=== PATIENT | male | born 1975 | race Caucasian/White ===

== ENCOUNTER → 2017-08-06 07:12 | Outpatient (CLI) | payer OTHER, SELFPAY ==
[2017-08-06 07:44] LABS: Absolute Lymphocyte Count 1.87 X10^3/ul (0.83-4.51); Absolute Neutrophil Count 5.4 X10^3/uL (2.0-7.7); Basophil# 0.11 X10^3/uL; Basophil% 1.3 % (0-1); Eosinophils% 3.4 % (0-5); Hematocrit 41.3 % (40-54); Hemoglobin 13.6 g/dl (13.0-16.5); Lymphocyte # 1.87 X10^3/ul (4.0); Lymphocyte % 21.3 % (19-41); Mean Corp Hgb Conc 32.9 g/gl (32-36); Mean Corpuscular Volume 82.1 fL (80-94); Mean Platelet Vol. 10.3 fl (6.2-12.0); Monocyte# 1.13 X10^3/uL; Monocyte% 12.9 % (0-10); Neutrophil # 5.37 X10^3/uL (2.7-7.7); POSITIVE COUNT NO; POSITIVE DIFFERENTIAL NO; POSITIVE MORPHOLOGY NO; Platelet Count 308 K/mm3 (150-450); RBC Distribution Width CV 14.1 % (11.6-14.6); RBC Distribution Width SD 41.3 fl (35.1-43.9); Red Blood Count 5.03 M/mm3 (4.6-6.2); White Blood Count 8.8 K/mm3 (4.4-11.0)
[2017-08-06 08:21] LABS: ALB/GLOB Ratio 0.9 RATIO (0.9-2.4); AST(SGOT) 18 U/L (15-37); Alanine Aminotransfer ALT/SGPT 33 U/L (16-61); Albumin, Serum 3.5 g/dL (3.2-5.0); Alkaline Phosphatase 77 U/L (45-117); Anion Gap 7 (5-15); BUN 19 mg/dL (7-18); BUN/Creat Ratio 22.3 RATIO (10-20); Calcium,Total 8.1 mg/dL (8.5-10.1); Chloride 108 mmol/L (98-107); Cholesterol 184 mg/dL (200); Creatinine, Serum 0.85 mg/dL (0.70-1.30); EST Glomerular Filtration Rate 106 mL/min (>60); Est Glom Filt Rate - Afr Amer 128 mL/min (>60); Globulin 3.9 g/dL (2.2-4.2); Glucose 100 mg/dL (74-106); High Density Lipoprotein 46 mg/dL; PSA,Total - Annual Screen 0.36 ng/mL (0.00-4.00); Potassium 4.2 mmol/L (3.5-5.1); Protein, Total 7.4 g/dL (6.4-8.2); Sodium Level 141 mmol/L (136-145); Thyroid Stim Hormone (TSH) 1.59 uIU/mL (0.358-3.74); Triglycerides 80 mg/dL; Very Low Density Lipoprotein 16 mg/dL (5-40)
[2017-08-06 12:08] LABS: Vitamin B12 636 pg/mL (211-911)
[2017-08-11 12:07] LABS: Testosterone, Free 8.75 ng/dL (5.00-21.00)
[2017-08-12 11:10] LABS: Testosterone, % Free 3.82 % (1.50-4.20); Testosterone, Total 229 ng/dL (264-916)
== END ==
PROVIDERS: Family Provider Family Medicine; PCP Family Medicine; Visit Provider Family Medicine
DX: Z00.01 Encounter for general adult medical examination with abnormal findings (principal); R53.83 Other fatigue; R63.5 Abnormal weight gain; E53.8 Deficiency of other specified B group vitamins; E66.01 Morbid (severe) obesity due to excess calories
CPT/HCPCS: 36415; 80053; 80061; 82306; 82607; 84153; 84402; 84403; 84443; 85025; G0103

== ENCOUNTER → 2017-09-06 20:34 | Outpatient (CLI) | payer OTHER, SELFPAY | PROVIDERS: Family Provider Family Medicine; PCP Family Medicine; Visit Provider Family Medicine | DX: G47.10 Hypersomnia, unspecified (principal); R06.83 Snoring; R53.83 Other fatigue | CPT/HCPCS: 95810 ==

== ENCOUNTER 2019-03-06 15:37 | Observation (INO) | payer OTHER, SELFPAY ==
[2019-03-06] VITALS (8 sets, daily range): BP systolic 136–197; BP diastolic 85–117; PULSE 80–95; RESP 16–20; TEMP 36.7–37.1; O2SAT 95–98; BMI 45.7; BMI 45.6
--- NOTE | 2019-03-06 16:02 | CT_ITS ---
STUDY: CT BRAIN WITHOUT CONTRAST REASON FOR EXAM: Male, 44 years old. Aphasia and confusion beginning today. RADIATION DOSAGE (If Supplied By Facility): CTDIvol = ( 44.99 ) mGy, DLP = ( 812.98 ) mGycm TECHNIQUE: Transaxial CT imaging of the brain was performed without administration of intravenous contrast material. Individualized dose optimization techniques were used for this CT. COMPARISON: No relevant priors. FINDINGS: Normal soft tissue structures. Normal calvarium. Normal size ventricles and extra-axial spaces for the patient's age. Normal white matter tracts of the cerebral hemispheres. Normal basal ganglia and thalami. Normal brainstem. Normal cerebellum. There is no intracranial hemorrhage. There are no findings of an acute ischemic infarction. Normal visualized paranasal sinuses. CT/Brain/Head without Contrast IMPRESSION: Normal unenhanced CT scan of the brain. There is continued concern for acute infarct, MRI is recommended. Electronically Signed: Alan Beltre DO at 16:57 EDT Tel [phone], Service support ,
--- NOTE | 2019-03-06 16:02 | EKG12_ITS ---
Test Reason : ALT LOC Blood Pressure : / mmHG Vent. Rate : 082 BPM Atrial Rate : 082 BPM P-R Int : 170 ms QRS Dur : 088 ms QT Int : 366 ms P-R-T Axes : 018 000 006 degrees QTc Int : 427 ms Normal sinus rhythm with sinus arrhythmia Normal ECG Confirmed by SHYAM COLEMAN, LIZA ([id number]), editorial assistant EDDIE RASMUSSEN ([id number]) on 03/08/2019 12:49:18 PM Referred By: Benjamin Esquivel Confirmed By:LIZA HOWE MD
--- NOTE | 2019-03-06 16:03 | ED.VISSUMM ---
- ER Visit Summary Date of Service: 03/06/19 Chief Complaint: Expressive aphasia History of Present Illness: The patient is a 44 M presenting with expressive aphasia. Patient was at his counselor's office and he started having difficulty reading and with speech. He states he was looking at his phone and was unable to interpret the words. He then tried to speak and was unable to speak. He states he knew what he wanted to say but was unable to get the words out. The symptoms lasted approximately 40 minutes. He is starting to improve. He states he also had left hand numbness, this has resolved. Denies other complaints. Physical Examination: Vitals are stable. Patient is afebrile. Alert no acute distress. HEENT exam is unremarkable. Neck is supple. Lungs are clear and equal bilaterally. Heart is regular rate and rhythm. Abdomen is soft nontender nondistended. Extremities are unremarkable. Skin is warm and dry. No focal neurologic deficit. NIH 0 Remainder of exam is unremarkable. Emergency Department Course and Treatment: CBC, chemistries unremarkable other than BUN 22. INR 1.0. Troponin is negative. EKG is sinus rate of 82 with no acute ischemic changes. Chest x-ray is normal. CT head shows normal unenhanced CT scan of the brain. NIH remains 0 in the ED. Discussed with the hospitalist for observation. Disposition: Observation Impression: TIA This note was generated with [employer] dictation software. It may contain incorrect words, spelling, and punctuation that were not noted in review of the chart prior to signing ED Disposition - Plan for ED Patient: Referrals: Basil Simental DO [Primary Care Provider] -
--- NOTE | 2019-03-06 16:15 | RAD_ITS ---
STUDY: X-RAY CHEST REASON FOR EXAM: Male, 44 years old. Altered mental status TECHNIQUE: Single AP portable view of the chest. COMPARISON: None. FINDINGS: The lungs are clear and expanded. There is no demonstrated pleural abnormality. Normal size heart. Normal mediastinum and robin. Normal visualized pulmonary arteries. Normal visualized aortic arch and descending thoracic aorta. Normal visualized thoracic spine. Normal visualized ribs, clavicles, and shoulders. There is no demonstrated abnormality of the visualized soft tissue structures of the upper abdomen. RAD/Chest 1 View IMPRESSION: Normal x-ray examination of the chest. Electronically Signed: Gary Ohara MD at 16:29 EDT Tel , Service support ,
[2019-03-06 16:26] LABS: Absolute Neutrophil Count 7.3 X10^3/uL (2.0-7.7); Basophil# 0.08 X10^3/uL; Basophil% 0.7 % (0-1); Eosinophil# 0.19 X10^3/uL; Eosinophils% 1.7 % (0-5); Hematocrit 47.3 % (40-54); Hemoglobin 15.7 g/dL (13.0-16.5); Lymphocyte % 21.7 % (19-41); Mean Corp Hgb Conc 33.2 g/dL (32-36); Mean Corpuscular Hgb 28.8 pg (27.0-32.0); Mean Corpuscular Volume 86.6 fL (80-94); Mean Platelet Vol. 9.7 fl (6.2-12.0); Monocyte# 0.99 X10^3/uL; NRBC Flagged by Analyzer 0 % (0-5); Neutrophil # 7.34 X10^3/uL (2.7-7.7); Neutrophil % 66.5 % (47-70); Platelet Count 274 K/mm3 (150-450); RBC Distribution Width CV 12.8 % (11.6-14.6); Red Blood Count 5.46 M/mm3 (4.6-6.2)
[2019-03-06 16:35] LABS: Prothrombin Time (Protime)PT. 13.2 SECONDS (11.7-14.9)
[2019-03-06 16:43] LABS: Anion Gap 6 (5-15); BUN 22 mg/dL (7-18); Calcium,Total 8.7 mg/dL (8.5-10.1); Chloride 105 mmol/L (98-107); Creatinine, Serum 1.22 mg/dL (0.70-1.30); EST Glomerular Filtration Rate 69 mL/min (>60); Est Glom Filt Rate - Afr Amer 84 mL/min (>60); Estimated Creatinine Clearance 81.44 ml/min; Glucose 106 mg/dL (74-106); Potassium 3.7 mmol/L (3.5-5.1); Sodium Level 139 mmol/L (136-145)
[2019-03-06 17:15] LABS: Bedside Glucose 114 mg/dL (70-110)
--- NOTE | 2019-03-06 17:41 | PCM.HP.STD ---
<Tavo Blackburn - Last Filed: 03/06/19 17:41> Problem List (1) Aphasia Status: Acute (2) Morbid obesity Status: Chronic (3) Multiple sclerosis Status: Chronic History of Present Illness Date of Admission: 03/06/19 Chief Complaint: aphasia The patient is a 44 year old M with pmhx of Multiple sclerosis diagnosed in 2010 for which he receives no treatment, also with hx of morbid obesity, who presents to the ER with c/o aphasia. Today he was going to see his counsellor whom he sees for periodic guidance and specifically not for depression or other issues. He was sitting in the waiting room and he suddenly could not read what was on his phone. He then went to talk to the counsellor and he could not speak. He could not put full sentences together. He could say some words. He also developed numbness in his left hand. This lasted about 30-45 mins and then resolved on its own. He currently has no symptoms. He states that he has never had the reading or speech issue before. He says that when he is stress he develops numbness and tingling in his left hand due to a problem with his brachial plexus. He states he has no medical problems, however later admitted that in 2010 he was diagnosed at [facility] with MS. He presented at that time with full body left sided weakness. He states this was confirmed with an MRI of the brain that showed multiple lesions. A lumbar puncture was reportedly done that did not reveal anything, however he states the hit a nerve and his left leg has not been the same since. He states he has never taken medication for the MS because they only mask the symptoms and dont treat the underlying problem and instead he has treated it with vitamins and natural substances because he believes these treat the underlying problem. His father has a neurologic disorder that he also treats with natural substances. His mother has a hx of stroke. He has a band aid on his head but denies trauma. He told the ER physician that he wears a band aid on his head every day after someone made fun of him for it in the past. He has no visual disturbances, no focal weakness, no hearing changes, no headache, no dysphagia, no ataxia, no slurred speech or facial droop. [] Past Medical History Past Medical History (Chronic Problems): Chronic Problems Morbid obesity (Chronic) Multiple sclerosis (Chronic) Allergies No Known Allergies Allergy (Verified 03/06/19 15:40) Home Medications: Ambulatory Orders Medication Instructions Recorded Terbinafine HCl 250 mg PO DAILY 03/06/19 Psychiatric History: No pertinent psych hx Lives: Spouse/ Significant Other Smoking Status: Never smoker Tobacco Use: Non-smoker Alcohol: None Drugs: None - *Family History Maternal History Items: Stroke Paternal History Items: - - unspecified neurologic disorder Review of Systems Constitutional: Denies: Chills, Fever, Weight Change HEENT: Denies: Head Aches, Sinus Congestion, Sinus Drainage Cardiovascular: Denies: Chest Pain, Palpitations Respiratory: Denies: Cough, Shortness of breath at rest, Sputum production Gastrointestinal: Denies: Abdominal Pain, Nausea, Vomiting Genitourinary: Denies: Dysuria Musculoskeletal: Denies: Joint Pain, Joint Tenderness Skin: Denies: Rash, Wounds Neurological: Reports: Change in Speech, Numbness, Tingling. Denies: Balance problems, Blurred vision, Double vision, Slurred speech, Confusion, Difficulty swallowing, Focal weakness, Headaches, Incoordination Psychiatric: Denies: Anxiety, Depression, Homicidal Ideations, Suicidal Ideations Hematologic/ Lymphatic: Denies: Easy Bruising, Easy Bleeding VTE Information - Inpt Only VTE Present on Admission: No VTE Mechan Device Prophylaxis: None VTE Pharm Prophylaxis ordered?: Yes Patient Problems: Active and Suspected Problems Aphasia (Acute) - Physical Exam General: Alert, Oriented x3, Cooperative HEENT: Atraumatic, PERRLA, EOMI, Normocephalic Neck: Supple, No JVD, Negative Carotid Bruits Lungs: Clear to auscultation, Normal air movement Cardiovascular: Regular rate, No murmurs Abdomen: Bowel Sounds Present, Soft, Non Tender, Obese Extremities: No edema, Capillary Refill Less than 3 Seconds Skin: No rashes, No breakdown Musculoskeletal: No Tenderness to Palpation of Joints or Extremities Neurological: Cranial nerves II-XII grossly intact, - - strength intact bilaterally, no pronator drift, graphasthesia intact, point to point intact, sensation intact througout exam, clinical professor strength excellent, rapid alternating movements intact. Psych/Mental Status: Normal Affect, Appropriate, Alert and oriented to time, place, person, mood and affect Vital Signs Temp Pulse Resp BP Pulse Ox 98.7 F 91 20 H 136/85 H 96 03/06/19 15:37 03/06/19 17:19 03/06/19 17:19 03/06/19 17:17 03/06/19 17:19 Oxygen Delivery Method Room Air Weight: 318 lb 12.615 oz Body Mass Index (BMI) 45.7 Finger Stick Blood Glucose 114 Laboratory Tests Past 24 Hrs 03/06/19 03/06/19 03/06/19 16:15 16:15 16:15 WBC 11.0 RBC 5.46 Hgb 15.7 Hct 47.3 MCV 86.6 MCH 28.8 MCHC 33.2 RDW Std Deviation 40.0 RDW Coeff of Killian 12.8 Plt Count 274 MPV 9.7 Immature Gran % (Auto) 0.400 Neut % (Auto) 66.5 Lymph % (Auto) 21.7 Mcpherson % (Auto) 9.0 Eos % (Auto) 1.7 Baso % (Auto) 0.7 Absolute Neuts (auto) 7.3 Absolute Lymphs (auto) 2.40 Nucleated RBC % 0 PT 13.2 INR 1.0 APTT 28.0 Sodium 139 Potassium 3.7 Chloride 105 Carbon Dioxide 28.0 Anion Gap 6 BUN 22 H Creatinine 1.22 Estim Creat Clear Calc 81.44 Est GFR (MDRD) Af Amer 84 Est GFR (MDRD) Non-Af 69 BUN/Creatinine Ratio 18.0 Glucose 106 Calcium 8.7 Troponin I < 0.015 POC Glucose 03/06/19 17:09 POC Glucose 114 H Assessment/Plan All Active Problems Aphasia (Acute) 1. Aphasia, inability to read, left hand parasthesias - concerning for TIA vs Stroke. Also the patient states he was formally diagnosed with MS in 2010. He is not treated for this. Another confounding issue is that he states when he is stressed he has left hand parasthesias from an unspecified brachial plexus problem. He states he had an MRI with multiple lesions but nothing on the LP. CT brain is negative here. He currently has no symptoms. He has never had the speaking or reading problem in the past. He denies hx of HTN, HLD, DMt2, or smoking. He takes no medications except supplements. He has a + fm hx, with a dad with an unspecified neurologic problem and a mother who had a stroke. -Neuro consult -MRI brain -if MRI + for stroke, will obtain echo, CTA head and neck. -BP elevated, permissive until MRI obtained. -NIHSS -FLP -TSH -B12 2. MS - neuro consult - not on medications. Obtain records from [facility]. 3. Morbid obesity - dietary consult DVT ppx: early ambulation This patient was seen by Tavo Blackburn PA-C under the supervision of Dr. Esquivel. <AlvinBenjamin E - Last Filed: 03/06/19 18:37> History of Present Illness The patient is a 44 year old M [] Past Medical History Allergies No Known Allergies Allergy (Verified 03/06/19 15:40) - Physical Exam Vital Signs Temp Pulse Resp BP Pulse Ox 98.3 F 82 16 197/113 H 96 03/06/19 18:14 03/06/19 18:14 03/06/19 18:14 03/06/19 18:18 03/06/19 18:14 Oxygen Delivery Method Room Air Weight: 318 lb 3 oz Body Mass Index (BMI) 45.6 Finger Stick Blood Glucose 114 Intake and Output for Last 24 Hours 03/04/19 03/05/19 03/06/19 23:59 23:59 23:59 Intake Total 0 / 0 Balance 0 / 0 Laboratory Tests Past 24 Hrs 03/06/19 03/06/19 03/06/19 16:15 16:15 16:15 WBC 11.0 RBC 5.46 Hgb 15.7 Hct 47.3 MCV 86.6 MCH 28.8 MCHC 33.2 RDW Std Deviation 40.0 RDW Coeff of Killian 12.8 Plt Count 274 MPV 9.7 Immature Gran % (Auto) 0.400 Neut % (Auto) 66.5 Lymph % (Auto) 21.7 Mcpherson % (Auto) 9.0 Eos % (Auto) 1.7 Baso % (Auto) 0.7 Absolute Neuts (auto) 7.3 Absolute Lymphs (auto) 2.40 Nucleated RBC % 0 PT 13.2 INR 1.0 APTT 28.0 Sodium 139 Potassium 3.7 Chloride 105 Carbon Dioxide 28.0 Anion Gap 6 BUN 22 H Creatinine 1.22 Estim Creat Clear Calc 81.44 Est GFR (MDRD) Af Amer 84 Est GFR (MDRD) Non-Af 69 BUN/Creatinine Ratio 18.0 Glucose 106 Calcium 8.7 Troponin I < 0.015 Triglycerides Cholesterol LDL Cholesterol VLDL Cholesterol HDL Cholesterol 03/06/19 16:15 WBC RBC Hgb Hct MCV MCH MCHC RDW Std Deviation RDW Coeff of Killian Plt Count MPV Immature Gran % (Auto) Neut % (Auto) Lymph % (Auto) Mcpherson % (Auto) Eos % (Auto) Baso % (Auto) Absolute Neuts (auto) Absolute Lymphs (auto) Nucleated RBC % PT INR APTT Sodium Potassium Chloride Carbon Dioxide Anion Gap BUN Creatinine Estim Creat Clear Calc Est GFR (MDRD) Af Amer Est GFR (MDRD) Non-Af BUN/Creatinine Ratio Glucose Calcium Troponin I Triglycerides Pending Cholesterol Pending LDL Cholesterol Pending VLDL Cholesterol Pending HDL Cholesterol Pending POC Glucose 03/06/19 17:09 POC Glucose 114 H Assessment/Plan Hospitalist note: I am seeing this patient in conjunction with Tavo Blackburn. I independently seen and examined the patient. History and physical, laboratory data and imaging studies reviewed and I concur with the above admission and work-up plan. Patient presented to the emergency because of aphasia, difficulty breathing and left hand paresthesia. Today, he went to see his counselor and while he was sitting and suddenly, he could not treat when he was on his phone and then he went to talk to his counselor but he could not speak and he could not afford sentence together. He was able to say some scattered warts during that time. Patient mentioned that this episode lasted for about 30 to 45 minutes and he had left hand numbness as well. He denied focal arm or leg weakness. He denied blurred vision. He denied chest pain or shortness of breath. He mentioned that he was diagnosed with multiple sclerosis back in 2010 at [facility] but he never received treatment for it. During all these years, he has no issues with emesis and never been treated or admitted for. In the emergency department, his NIH stroke scale was 0. His blood pressure was slightly elevated, other vital signs were stable. His routine blood work was unremarkable. CT scan brain showed no acute findings. Chest x-ray showed no acute findings. EKG revealed normal sinus rhythm without evidence of acute ischemic changes or cardiac arrhythmias. He is being admitted for aphasia/left hand paresthesia with concern for suspected TIA or symptoms related to previously diagnosed multiple sclerosis. - Physical Exam General: Alert, Oriented x3, Cooperative, No apparent distress. HEENT: Atraumatic, PERRLA, EOMI. Neck: Supple, No JVD, Negative Carotid Bruits, Trachea Midline, Thyroid Normal. Lungs: Clear to auscultation, Normal air movement, No rhonchi, No wheeze, No rales. Cardiovascular: Regular rate, Regular Rhythm, Normal S1, Normal S2, PMI Normal. Abdomen: Bowel Sounds Present, Soft, Non Tender, Non-Distended, No Hepato-splenomegaly. Extremities: No clubbing, No cyanosis, No edema Skin: No rashes, No breakdown Neurological: Cranial nerves are intact, normal power and tone of all limbs. Assessment and plan: #1 aphasia/left hand paresthesia/difficulty reading: With past history of MS diagnosed in 2010. Symptoms could be due to TIA but unlikely at this time given his age and he has no past history of hypertension, diabetes, CAD or family history of stroke. Plan: Admit to PCU, cardiac monitoring, NIH stroke scale, will profile, start baby aspirin, MRI brain, neurology consult. At this time, I do not think that we need for stroke work-up unless the MRI brain came back positive for acute stroke. #2 elevated blood pressure: Without history of hypertension. Plan: We will allow permissive hypertension for now, will use IV hydralazine PRN for systolic more than 170. Other chronic medical problems: Stable, plan as above. This note was generated with [employer] dictation software. It may contain incorrect words, spelling, and punctuation that were not noted in checking the note before signing. Code Visit OBSV E&M: 53428 Initial observation care L3
--- NOTE | 2019-03-06 18:12 | MRI_ITS ---
HISTORY: Aphasia. 30 minute episode today. TECHNIQUE: Routine brain MR protocol was performed without gadolinium. COMPARISON: CT scan of brain from just over 2 hours earlier FINDINGS: # of images incl. paperwork: 302 Periventricular deep and subcortical white matter disease is mild with a few lesions. There is lesions bilaterally within the occipital lobes adjacent to the occipital horns of the lateral ventricles. There is another lesion within the left frontal lobe oriented perpendicularly away from the lateral ventricles measuring 12 mm. Additional small focus extending away from the anterior horn of the right lateral ventricle in the right frontal lobe is present. Some additional disease extends more inferiorly towards the posterior limb of the right internal capsule. Brain volume is normal. No acute stroke is present. Paranasal sinuses are clear. There are no masses, herniations, nor deviations. Orbits and globes are no acute ischemia perceived. Several white matter lesions within the brain. The pituitary and sella turcica are not enlarged. Flow is present within major central intracranial arteries. MRI/Brain without Contrast IMPRESSION: The largest of these within the left frontal lobe periventricular white matter measuring 12 mm. These are nonspecific, but could be indicative of demyelinating plaques from multiple sclerosis.. at 0417 Reported and signed by: Tha Garber MD Electronically Signed: Tha Garber MD at 4:16 EDT Tel , Service support ,
[2019-03-06 18:42] LABS: Cholesterol 200 mg/dL (200); High Density Lipoprotein 55 mg/dL; Triglycerides 174 mg/dL; Very Low Density Lipoprotein 35 mg/dL (5-40)
[2019-03-07 02:14] VITALS: BP 158/89; PULSE 70; RESP 18; TEMP 36.5; O2SAT 99
[2019-03-07 02:55] VITALS: PULSE 55
[2019-03-07 05:45] VITALS: BP 135/83; PULSE 68; RESP 16; TEMP 36.5; O2SAT 98
[2019-03-07 06:54] VITALS: PULSE 54
[2019-03-07 09:00] VITALS: BP 159/80; PULSE 67; RESP 14; TEMP 36.4; O2SAT 95
[2019-03-07 09:19] LABS: Vitamin B12 850 pg/mL (211-911)
--- NOTE | 2019-03-07 09:27 | MRI_ITS ---
STUDY: MRI BRAIN WITH CONTRAST REASON FOR EXAM: Male, 44 years old. CVA. Suspicious for MS plaques. TECHNIQUE: Postcontrast T1 weighted sagittal, axial and coronal views of the brain only were performed. 28 IV Dotarem was administered for the contrast portion of the examination. COMPARISON: MRI brain without contrast 03/06/2019. FINDINGS: There are no enhancing lesions extra-axially and intraaxially. No communicating or noncommunicating hydrocephalus. There are no new findings. Normal visualized upper cervical spine. MRI/Brain WITH Contrast IMPRESSION: 1. No abnormal enhancing lesions intraaxially and extra-axially. 2. No enhancing MS plaques. Electronically Signed: Jeison Riddle MD at 13:35 EDT , Service support ,
--- NOTE | 2019-03-07 09:27 | CT_ITS ---
STUDY: CTA HEAD AND NECK WITH CONTRAST REASON FOR EXAM: Male, 44 years old. Left-sided weakness. Aphasia and confusion. RADIATION DOSAGE (If Supplied By Facility): CTDIvol = ( 30.81 ) mGy, DLP = ( 1721.01 ) mGycm TECHNIQUE: CT angiography was performed with a multi-detector CT scanner. Data acquisition was obtained from the skull base through the vertex following intravenous administration of 100mL IV Isovue 370. MIP images were reconstructed from the axial data set. Post-processing of the angiographic images was performed, with multiplanar reformation and 3D reconstruction. Individualized dose optimization techniques were used for this CT. COMPARISON: No relevant priors. FINDINGS: Normal bilateral petrous carotid arteries. There is calcified plaque formation of the right cavernous carotid artery, without a cross-sectional luminal stenosis. There is calcified plaque formation of the left cavernous carotid artery, without a cross-sectional luminal stenosis. Normal right A1 segments of the anterior cerebral artery. Normal left A1 segments of the anterior cerebral artery. Normal intact anterior communicating artery (ACOM). Normal bilateral A2 segments of the anterior cerebral arteries. Normal right M1 and M2 segments of the middle cerebral arteries, with a normal M1 bifurcation. Normal left M1 and M2 segments of the middle cerebral arteries, with a normal M1 bifurcation. Normal right posterior communicating artery (PCOM). Normal left posterior communicating artery (PCOM). Normal bilateral vertebral arteries. Normal basilar artery with a normal basilar bifurcation. The visualized bilateral superior cerebellar (SCA) arteries are normal. Normal bilateral P1, P2 and visualized P3 segments of the posterior cerebral arteries. There is no demonstrated aneurysm of the poarch of Lo. There is no demonstrated abnormality of the visualized brain. AORTIC ARCH: Normal visualized aortic arch. Normal origins of the brachiocephalic, left common carotid, and left subclavian arteries. RIGHT CAROTID ARTERIES: Normal right common carotid artery (CCA). Normal right common carotid bulb. Normal origin of the right internal carotid (ICA) artery without a hemodynamically significant stenosis. Normal visualized cervical portion of the right internal carotid artery. Normal origin of the right external carotid artery (ECA). LEFT CAROTID ARTERIES: Normal left common carotid artery (CCA). Normal left common carotid bulb. Normal origin of the left internal carotid (ICA) artery without a hemodynamically significant stenosis. Normal visualized cervical portion of the left internal carotid artery. Normal origin of the left external carotid artery (ECA). VERTEBRAL ARTERIES: There is enhancement within the bilateral vertebral arteries with a small left vertebral artery, and a dominant right vertebral artery. CT/CTA Head AND Neck W/ Contrast IMPRESSION: Normal CTA Head and neck with contrast. Electronically Signed: Juaquin Koenig, at 15:52 EDT , Service support ,
--- NOTE | 2019-03-07 09:33 | ECHOCS_ITS ---
Reason For Study: TIA/CVA Procedure This was a 2D Doppler, Color Flow transthoracic echocardiogram. The study was technically difficult. Contrast injection was performed. Exam performed portable in patient room. Left Ventricle Normal size and thickness. The estimated ejection fraction is 65 %. Normal diastology for age. No regional wall motion abnormalities noted. Right Ventricle Normal size and thickness. Normal systolic function. Atria Normal left atrium. Normal right atrium. Normal atrial septum. Bubble contrast study negative for right to left interatrial shunt. Mitral Valve The mitral valve is structurally normal. No prolapse or stenosis seen. Tricuspid Valve Normal tricuspid valve. Trivial tricuspid valve insufficiency. Right ventricular systolic pressure estimated to be 32 mmHg. Aortic Valve Normal aortic valve. Trisinus/trileaflet aortic valve. Pulmonic Valve Normal pulmonic valve. Great Vessels Normal aortic root. Normal arch. Normal inferior vena cava. Inferior vena cava collapse with sniff. Pericardium/Pleural No pericardial effusion. Medication Diluted definity 3ml given slow IV push to enhance endocardial definition. Performed a rapid injection of agitated mix of 9 cc saline and 1cc air to assess for atrial septal defect. MMode/2D Measurements & Calculations LVIDd: 4.8 cm IVSd: 1.1 cm LA dimension: 4.2 cm LVIDs: 2.8 cm LVPWd: 1.2 cm FS: 41.7 % LAV(MOD-bp): 62.8 ml LA A4 area: 19.5 cm2 RA A4 area: 14.1 cm2 LAV(MOD-bp) Indexed: 24.7 ml/m2 LAV(MOD-sp2): 68.4 ml LAV(MOD-sp4): 55.1 ml Time Measurements MV dec time: 0.28 sec Doppler Measurements & Calculations MV E max zan: 81.8 cm/sec Lat Peak E' Zan: 10.6 cm/sec Med Peak E' Zan: 8.4 cm/sec MV A max zan: 76.1 cm/sec E/E' lat: 7.7 E/E' med: 9.7 MV E/A: 1.1 MV V2 max: 91.5 cm/sec MV P1/2t max zan: 90.5 cm/sec Ao V2 max: 131.9 cm/sec MV max P.3 mmHg MV P1/2t: 104.0 msec Ao max P.0 mmHg MV V2 mean: 52.9 cm/sec MV dec slope: 254.9 cm/sec2 Ao V2 mean: 93.1 cm/sec MV mean P.3 mmHg Ao mean P.8 mmHg MV V2 VTI: 32.3 cm MVA(P1/2t): 2.1 cm2 Ao V2 VTI: 29.4 cm LV V1 max: 110.5 cm/sec PA V2 max: 110.7 cm/sec TR max zan: 257.6 cm/sec LV V1 max P.9 mmHg TR max P.5 mmHg LV V1 mean P.7 mmHg LV V1 mean: 77.3 cm/sec LV V1 VTI: 25.5 cm Interpretation Summary The estimated ejection fraction is 65 %. Normal diastology for age. Bubble contrast study negative for right to left interatrial shunt. Trivial tricuspid valve insufficiency. Right ventricular systolic pressure estimated to be 32 mmHg. The study was technically difficult. Contrast injection was performed. There is no comparison study available. Ordering Physician: Tavo Blackburn Referring Physician: Basil Simental Performed By: Chidi Oconnell RCS
--- NOTE | 2019-03-07 10:49 | PCM.CONS.GEN ---
Problem List (1) Speech disturbance Status: Acute Reason for Consult Date of Consultation: 03/07/19 Reason for Consultation: Speech disturbances, probable TIA History of Present Illness: The patient is a 44 year old M with PMH MS admitted with speech disturbances. Per patient yesterday 03/06/2019 in the morning patient had a sudden onset of speech disturbances where he could not get his words out and was speaking in 1027 words but could not form any sentences, he understood what was being told to him but he could not respond and get the words out per patient. He denies any headache, focal motor weakness, sensory loss, visual disturbances or dizziness. Per patient his speech is improving about 40 minutes. Per patient he has been diagnosed with MS about 11 years ago but never took any medications for the same as he does not believe in taking medications and believes in taking natural products. At present he lives with his spouse, he denies any frequent falls, does not use any cane or walker and does drive. Per patient he does not take aspirin at baseline. MRI brain without contrast reported to show a white matter lesion in the left frontal lobe oriented perpendicularly away from the lateral ventricles measuring 12 mm and additional small focus extending from anterior horn of the right mid lateral ventricle in the right frontal lobe. Findings could be indicative of demyelinating plaques from MS. [] Past Medical History Past Medical History (Chronic Problems): Chronic Problems Morbid obesity (Chronic) Multiple sclerosis (Chronic) Allergies No Known Allergies Allergy (Verified 03/06/19 15:40) Home Medications: Ambulatory Orders Medication Instructions Recorded Terbinafine HCl 250 mg PO DAILY 03/06/19 Psychiatric History: No pertinent psych hx Lives: Spouse/ Significant Other Smoking Status: Never smoker Tobacco Use: Non-smoker Alcohol: None Drugs: None - *Family History Maternal History Items: Stroke Paternal History Items: - - unspecified neurologic disorder Review of Systems Constitutional: Reports: - - Complete ROS negative except as documented in HPI Patient Problems: Active and Suspected Problems Aphasia (Acute) Speech disturbance (Acute) - Physical Exam General: Alert HEENT: Normocephalic Neck: Supple Lungs: Normal air movement Cardiovascular: Normal S1, Normal S2 Abdomen: Bowel Sounds Present Extremities: No cyanosis Neurological: - - Conscious, alert, CN II to XII grossly intact, power 5 x 5 both upper and lower extremities, no sensory loss, no cerebellar signs, no aphasia or dysarthria at present, gait deferred, reflexes + B/L B/S/T/K/A, NIHSS 0 at present, mRS 0 at baseline Psych/Mental Status: Normal Affect Vital Signs Temp Pulse Resp BP Pulse Ox 97.5 F L 67 14 159/80 H 95 03/07/19 09:00 03/07/19 09:00 03/07/19 09:00 03/07/19 09:00 03/07/19 09:00 Oxygen Delivery Method Room Air Weight: 144.327 kg Body Mass Index (BMI) 45.6 Finger Stick Blood Glucose 114 Intake and Output for Last 24 Hours 03/05/19 03/06/19 03/07/19 23:59 23:59 23:59 Intake Total 800 / 800 600 / 600 Balance 800 / 800 600 / 600 Laboratory Tests Past 24 Hrs 03/06/19 03/06/19 03/06/19 16:15 16:15 16:15 WBC 11.0 RBC 5.46 Hgb 15.7 Hct 47.3 MCV 86.6 MCH 28.8 MCHC 33.2 RDW Std Deviation 40.0 RDW Coeff of Killian 12.8 Plt Count 274 MPV 9.7 Immature Gran % (Auto) 0.400 Neut % (Auto) 66.5 Lymph % (Auto) 21.7 [place] % (Auto) 9.0 Eos % (Auto) 1.7 Baso % (Auto) 0.7 Absolute Neuts (auto) 7.3 Absolute Lymphs (auto) 2.40 Nucleated RBC % 0 PT 13.2 PT Diluted Dilute PT Confrm Ratio INR 1.0 APTT 28.0 Plasminogen Activity Lupus Anticoag aPTT Dil Josué Viper Venom Functional Protein C APC Resistance Free Protein S Func Antithrombin III Factor V Leiden Mutat Sodium 139 Potassium 3.7 Chloride 105 Carbon Dioxide 28.0 Anion Gap 6 BUN 22 H Creatinine 1.22 Estim Creat Clear Calc 81.44 Est GFR (MDRD) Af Amer 84 Est GFR (MDRD) Non-Af 69 BUN/Creatinine Ratio 18.0 Glucose 106 Calcium 8.7 Troponin I < 0.015 Triglycerides Cholesterol LDL Cholesterol VLDL Cholesterol HDL Cholesterol Vitamin B12 Homocysteine TSH Beta-2-GPI IgG Ab Beta-2-GPI IgA Ab Beta-2-GPI IgM Ab Anti-Cardiolipin IgG Ab Anti-Cardiolipin IgM Ab Factor II DNA Analysis 03/06/19 03/07/19 03/07/19 16:15 08:36 08:36 WBC RBC Hgb Hct MCV MCH MCHC RDW Std Deviation RDW Coeff of Killian Plt Count MPV Immature Gran % (Auto) Neut % (Auto) Lymph % (Auto) [place] % (Auto) Eos % (Auto) Baso % (Auto) Absolute Neuts (auto) Absolute Lymphs (auto) Nucleated RBC % PT PT Diluted Dilute PT Confrm Ratio INR APTT Plasminogen Activity Lupus Anticoag aPTT Dil Josué Viper Venom Functional Protein C APC Resistance Free Protein S Func Antithrombin III Factor V Leiden Mutat Sodium Potassium Chloride Carbon Dioxide Anion Gap BUN Creatinine Estim Creat Clear Calc Est GFR (MDRD) Af Amer Est GFR (MDRD) Non-Af BUN/Creatinine Ratio Glucose Calcium Troponin I Triglycerides 174 Cholesterol 200 LDL Cholesterol 110 VLDL Cholesterol 35 HDL Cholesterol 55 Vitamin B12 850 Homocysteine TSH 1.50 Beta-2-GPI IgG Ab Beta-2-GPI IgA Ab Beta-2-GPI IgM Ab Anti-Cardiolipin IgG Ab Anti-Cardiolipin IgM Ab Factor II DNA Analysis 03/07/19 10:05 WBC RBC Hgb Hct MCV MCH MCHC RDW Std Deviation RDW Coeff of Killian Plt Count MPV Immature Gran % (Auto) Neut % (Auto) Lymph % (Auto) [place] % (Auto) Eos % (Auto) Baso % (Auto) Absolute Neuts (auto) Absolute Lymphs (auto) Nucleated RBC % PT PT Diluted Pending Dilute PT Confrm Ratio Pending INR APTT Plasminogen Activity Pending Lupus Anticoag aPTT Pending Dil Josué Viper Venom Pending Functional Protein C Pending APC Resistance Pending Free Protein S Pending Func Antithrombin III Pending Factor V Leiden Mutat Pending Sodium Potassium Chloride Carbon Dioxide Anion Gap BUN Creatinine Estim Creat Clear Calc Est GFR (MDRD) Af Amer Est GFR (MDRD) Non-Af BUN/Creatinine Ratio Glucose Calcium Troponin I Triglycerides Cholesterol LDL Cholesterol VLDL Cholesterol HDL Cholesterol Vitamin B12 Homocysteine Pending TSH Beta-2-GPI IgG Ab Pending Beta-2-GPI IgA Ab Pending Beta-2-GPI IgM Ab Pending Anti-Cardiolipin IgG Ab Pending Anti-Cardiolipin IgM Ab Pending Factor II DNA Analysis Pending POC Glucose 03/06/19 17:09 POC Glucose 114 H Assessment/Plan All Active Problems Aphasia (Acute) Speech disturbance (Acute) The patient is a 44 year old M with PMH MS admitted with speech disturbances. Per patient yesterday 03/06/2019 in the morning patient had a sudden onset of speech disturbances where he could not get his words out and was speaking in 1027 words but could not form any sentences, he understood what was being told to him but he could not respond and get the words out per patient. He denies any headache, focal motor weakness, sensory loss, visual disturbances or dizziness. Per patient his speech is improving about 40 minutes. Per patient he has been diagnosed with MS about 11 years ago but never took any medications for the same as he does not believe in taking medications and believes in taking natural products. At present he lives with his spouse, he denies any frequent falls, does not use any cane or walker and does drive. Per patient he does not take aspirin at baseline. MRI brain without contrast reported to show a white matter lesion in the left frontal lobe oriented perpendicularly away from the lateral ventricles measuring 12 mm and additional small focus extending from anterior horn of the right mid lateral ventricle in the right frontal lobe. Findings could be indicative of demyelinating plaques from MS. Impression Probable TIA History of MS Plan ?Aspirin 81 mg p.o. once daily. Discussed about dual antiplatelets with aspirin and Plavix. But patient at present does not want to try Plavix and just wants to be on aspirin. Bleeding risks discussed in detail with the patient ?Lipitor 40 mg p.o. nightly. But per patient at present he does not want to try any cholesterol medications. Risk discussed in detail with the patient and he understands the same. ?MRI brain without contrast no acute stroke. Get MRI brain with contrast to look for active demyelinating lesion. Discussed with the patient about treatment for MS but at present per patient he does not want to consider any treatment for MS. ?CTA head/neck ?A1c 5.4, LDL 110 ?TTE pending ?Hypercoagulable panel ?Stroke risk factors discussed and stroke education provided ?Polysomnography testing as outpatient to rule out JOEY. Will defer testing to PCP ?PT/OT/ST ?Fall precautions ?GI/DVT prophylaxis ?Further medical management per hospitalist team ?Follow-up with neurology as outpatient in 4 weeks. Patient needs to follow-up with neurology for MS ?Please call with questions if any ?Thank you for allowing us to participate in patient's care and management This note has been generated using [employer] dictation software. It may contain incorrect words, spellings and punctuation's that were not noted in the review of the note prior to signing. Code Visit Inpatient E&M: 74212 Init Hosp L3
[2019-03-07 11:59] LABS: Hemoglobin A1c 5.4 % (4.2-6.3)
[2019-03-07 13:00] VITALS: BP 156/108; PULSE 65; RESP 14; TEMP 36.8; O2SAT 96
--- NOTE | 2019-03-07 14:00 | NURSING ---
pt is refusing telemetry at this time
--- NOTE | 2019-03-07 16:02 | CASEMGMT ---
Social Work PHQ9 completed. Patient reported to no depressive symptoms. Pt already receives counseling services about every two months, and plans to continue to follow up. Provided information for stroke support group. No other needs. RENÉE BeauchampW
--- NOTE | 2019-03-07 16:16 | DCINST_ITS ---
- Discharge Diagnoses Current Active Problems: Current Active and Chronic Problems TIA History of MS Hypertension Morbid obesity You will use the following diet at home:: Cardiac Your food should be the consistency of: Regular Your liquids should be the consistency of: Regular/Thin Discharge Activity: Return to Normal Activity Allergies/Adverse Reactions: Allergies No Known Allergies Allergy (Verified 03/06/19 15:40) Medications to take at Discharge Terbinafine HCl 250 mg PO DAILY 03/06/19 Aspirin [Aspirin, Baby] 81 mg PO DAILY@0800 tab.chew 03/07/19 Primary Care Physician: Basil Simental DO [Primary Care Provider] - Please follow up with your Primary Care Physician in: 1-2 weeks Test Results: Test results from this visit will be discussed in further detail at your follow- up appointment, if applicable. Please Follow Up With: Sonu Ellis MD When: 3-4 weeks Proposed Discharge Date: 03/07/19
--- NOTE | 2019-03-07 16:18 | PCM.DC.SUM ---
Discharge Date and Diagnosis - Problem List Patient Problems: Active and Suspected Problems TIA (transient ischemic attack) (Acute) Aphasia (Acute) Speech disturbance (Acute) Date of Admission: 03/06/19 Date of Discharge: 03/07/19 - Primary Discharge Diagnosis Active and Suspected Problems TIA (transient ischemic attack) (Acute) History of MS HTN Morbid obesity - Secondary Discharge Diagnosis Chronic Problems HTN (hypertension) (Chronic) Morbid obesity (Chronic) Multiple sclerosis (Chronic) Hospital Course and Treatment Imaging Results: IMAGING: CT/Brain/Head without Contrast IMPRESSION: Normal unenhanced CT scan of the brain. There is continued concern for acute infarct, MRI is recommended. RAD/Chest 1 View IMPRESSION: Normal x-ray examination of the chest. MRI/Brain without Contrast IMPRESSION: The largest of these within the left frontal lobe periventricular white matter measuring 12 mm. These are nonspecific, but could be indicative of demyelinating plaques from multiple sclerosis.. MRI/Brain WITH Contrast IMPRESSION: 1. No abnormal enhancing lesions intraaxially and extra-axially. 2. No enhancing MS plaques. CT/CTA Head AND Neck W/ Contrast IMPRESSION: Normal CTA Head and neck with contrast. Echo: Interpretation Summary The estimated ejection fraction is 65 %. Normal diastology for age. Bubble contrast study negative for right to left interatrial shunt. Trivial tricuspid valve insufficiency. Right ventricular systolic pressure estimated to be 32 mmHg. The study was technically difficult. Contrast injection was performed. There is no comparison study available. Consults: Caleb - neuro Operations: None Procedures: 2-D Echocardiogram Summary of Care Provided: Hospital Course: The patient is a 44 year old M with pmhx of MS diagnosed in 2010 for which he does not take any medication, and morbid obesity who presented to the ER with c/o sudden onset of difficulty speaking sentences and left hand parasthesias. He came to the ER and had a CT of the brain which was negative. His symptoms completely resolved after 30-45 minutes and did not recur. Labs were unremarkable. Blood pressure was elevated. He was admitted for stroke work up. He had an MRI of the brain which did not show acute infarct. There were multiple lesions noted as above. CTA head and neck was negative. Echo was negative. MRI with contrast was negative. A1C was 5.4. TSH and B12 were normal. Neuro was consulted. Neuro felt this was a TIA. He was started on aspirin. He refused to consider taking any other medication at this time. He was discharged home in stable condition. He will need to follow up with neuro in 3-4 weeks and will need follow up with his PCP in 1-2 weeks. This patient was seen by Tavo Blackburn PA-C under the supervision of Dr. Johnston. [] Patient Problems: Active and Suspected Problems TIA (transient ischemic attack) (Acute) Aphasia (Acute) Speech disturbance (Acute) - Physical Exam General: Alert, Oriented x3, Cooperative HEENT: Atraumatic, PERRLA, EOMI, Normocephalic Neck: Supple, No JVD, Negative Carotid Bruits Lungs: Clear to auscultation, Normal air movement Cardiovascular: Regular rate, No murmurs Abdomen: Bowel Sounds Present, Soft, Non Tender, Obese Extremities: No edema, Capillary Refill Less than 3 Seconds Skin: No rashes, No breakdown Musculoskeletal: No Tenderness to Palpation of Joints or Extremities Neurological: Cranial nerves II-XII grossly intact Psych/Mental Status: Normal Affect, Appropriate, Alert and oriented to time, place, person, mood and affect Vital Signs Temp Pulse Resp BP Pulse Ox 98.3 F 65 14 156/108 H 96 03/07/19 13:00 03/07/19 13:00 03/07/19 13:00 03/07/19 13:00 03/07/19 13:00 Oxygen Delivery Method Room Air Weight: 318 lb 3 oz Body Mass Index (BMI) 45.6 Finger Stick Blood Glucose 114 Intake and Output for Last 24 Hours 03/05/19 03/06/19 03/07/19 23:59 23:59 23:59 Intake Total 800 / 800 960 / 960 Balance 800 / 800 960 / 960 Laboratory Tests Past 24 Hrs 03/06/19 03/06/19 03/06/19 16:15 16:15 16:15 WBC 11.0 RBC 5.46 Hgb 15.7 Hct 47.3 MCV 86.6 MCH 28.8 MCHC 33.2 RDW Std Deviation 40.0 RDW Coeff of Killian 12.8 Plt Count 274 MPV 9.7 Immature Gran % (Auto) 0.400 Neut % (Auto) 66.5 Lymph % (Auto) 21.7 [place] % (Auto) 9.0 Eos % (Auto) 1.7 Baso % (Auto) 0.7 Absolute Neuts (auto) 7.3 Absolute Lymphs (auto) 2.40 Nucleated RBC % 0 PT 13.2 PT Diluted Dilute PT Confrm Ratio INR 1.0 APTT 28.0 Plasminogen Activity Lupus Anticoag aPTT Dil Josué Viper Venom Protein C Antigen Functional Protein C Prot C Funct Activity APC Resistance Free Protein S Antithrombin III Ag Func Antithrombin III Factor V Leiden Mutat Sodium 139 Potassium 3.7 Chloride 105 Carbon Dioxide 28.0 Anion Gap 6 BUN 22 H Creatinine 1.22 Estim Creat Clear Calc 81.44 Est GFR (MDRD) Af Amer 84 Est GFR (MDRD) Non-Af 69 BUN/Creatinine Ratio 18.0 Glucose 106 Hemoglobin A1c Calcium 8.7 Troponin I < 0.015 Triglycerides Cholesterol LDL Cholesterol VLDL Cholesterol HDL Cholesterol Vitamin B12 Homocysteine TSH Beta-2-GPI IgG Ab Beta-2-GPI IgA Ab Beta-2-GPI IgM Ab Anti-Cardiolipin IgG Ab Anti-Cardiolipin IgM Ab Factor II DNA Analysis Miscellaneous Test 03/06/19 03/07/19 03/07/19 16:15 08:36 08:36 WBC RBC Hgb Hct MCV MCH MCHC RDW Std Deviation RDW Coeff of Killian Plt Count MPV Immature Gran % (Auto) Neut % (Auto) Lymph % (Auto) [place] % (Auto) Eos % (Auto) Baso % (Auto) Absolute Neuts (auto) Absolute Lymphs (auto) Nucleated RBC % PT PT Diluted Dilute PT Confrm Ratio INR APTT Plasminogen Activity Lupus Anticoag aPTT Dil Josué Viper Venom Protein C Antigen Functional Protein C Prot C Funct Activity APC Resistance Free Protein S Antithrombin III Ag Func Antithrombin III Factor V Leiden Mutat Sodium Potassium Chloride Carbon Dioxide Anion Gap BUN Creatinine Estim Creat Clear Calc Est GFR (MDRD) Af Amer Est GFR (MDRD) Non-Af BUN/Creatinine Ratio Glucose Hemoglobin A1c Calcium Troponin I Triglycerides 174 Cholesterol 200 LDL Cholesterol 110 VLDL Cholesterol 35 HDL Cholesterol 55 Vitamin B12 850 Homocysteine TSH 1.50 Beta-2-GPI IgG Ab Beta-2-GPI IgA Ab Beta-2-GPI IgM Ab Anti-Cardiolipin IgG Ab Anti-Cardiolipin IgM Ab Factor II DNA Analysis Miscellaneous Test 03/07/19 03/07/19 03/07/19 10:05 11:20 11:20 WBC RBC Hgb Hct MCV MCH MCHC RDW Std Deviation RDW Coeff of Killian Plt Count MPV Immature Gran % (Auto) Neut % (Auto) Lymph % (Auto) [place] % (Auto) Eos % (Auto) Baso % (Auto) Absolute Neuts (auto) Absolute Lymphs (auto) Nucleated RBC % PT PT Diluted Pending Dilute PT Confrm Ratio Pending INR APTT Plasminogen Activity Pending Lupus Anticoag aPTT Pending Dil Josué Viper Venom Pending Protein C Antigen Pending Functional Protein C Pending Pending Prot C Funct Activity Pending APC Resistance Pending Free Protein S Pending Antithrombin III Ag Pending Func Antithrombin III Pending Pending Factor V Leiden Mutat Pending Pending Sodium Potassium Chloride Carbon Dioxide Anion Gap BUN Creatinine Estim Creat Clear Calc Est GFR (MDRD) Af Amer Est GFR (MDRD) Non-Af BUN/Creatinine Ratio Glucose Hemoglobin A1c Calcium Troponin I Triglycerides Cholesterol LDL Cholesterol VLDL Cholesterol HDL Cholesterol Vitamin B12 Homocysteine Pending TSH Beta-2-GPI IgG Ab Pending Pending Beta-2-GPI IgA Ab Pending Pending Beta-2-GPI IgM Ab Pending Pending Anti-Cardiolipin IgG Ab Pending Pending Anti-Cardiolipin IgM Ab Pending Pending Factor II DNA Analysis Pending Pending Miscellaneous Test Pending 03/07/19 11:20 WBC RBC Hgb Hct MCV MCH MCHC RDW Std Deviation RDW Coeff of Killian Plt Count MPV Immature Gran % (Auto) Neut % (Auto) Lymph % (Auto) [place] % (Auto) Eos % (Auto) Baso % (Auto) Absolute Neuts (auto) Absolute Lymphs (auto) Nucleated RBC % PT PT Diluted Dilute PT Confrm Ratio INR APTT Plasminogen Activity Lupus Anticoag aPTT Dil Josué Viper Venom Protein C Antigen Functional Protein C Prot C Funct Activity APC Resistance Free Protein S Antithrombin III Ag Func Antithrombin III Factor V Leiden Mutat Sodium Potassium Chloride Carbon Dioxide Anion Gap BUN Creatinine Estim Creat Clear Calc Est GFR (MDRD) Af Amer Est GFR (MDRD) Non-Af BUN/Creatinine Ratio Glucose Hemoglobin A1c 5.4 Calcium Troponin I Triglycerides Cholesterol LDL Cholesterol VLDL Cholesterol HDL Cholesterol Vitamin B12 Homocysteine TSH Beta-2-GPI IgG Ab Beta-2-GPI IgA Ab Beta-2-GPI IgM Ab Anti-Cardiolipin IgG Ab Anti-Cardiolipin IgM Ab Factor II DNA Analysis Miscellaneous Test POC Glucose 03/06/19 17:09 POC Glucose 114 H Discharge Diet: Low fat/ Low Cholesterol, 2000 mg Sodium Diet Discharge Activity: Return to Normal Activity Home Medications: Medications to take at Discharge Terbinafine HCl 250 mg PO DAILY 03/06/19 Aspirin [Aspirin, Baby] 81 mg PO DAILY@0800 tab.chew 03/07/19 Primary Care Physician: Basil Simental DO [Primary Care Provider] - Please follow up with your Primary Care Physician in: 1-2 weeks Please Follow Up With: Sonu Ellis MD When: 3-4 weeks Disposition: Home Minutes spent on discharge:: 35 Patient Condition:: Stable Medical Necessity - Tobacco Use Smoking Status: Never smoker Tobacco Use: Non-smoker Meaningful Use Info Meaningful Use Diagnoses (Choose all that apply): None applicable
[2019-03-13 14:07] LABS: Protein C Antigen 88 % (60-150); Protein C, Functional 105 % (73-180)
[2019-03-13 14:07] LABS: Dilute Russell Viper Venom 33.2 sec (0.0-47.0); Homocyst(e)ine 5.2 umol/L (0.0-15.0); PTT-Lupus Anticoagulant 36.7 sec (0.0-51.9); Protein C, Functional 110 % (73-180); dPT CONFIRMATION RATIO 0.98 Ratio (0.00-1.40)
[2019-03-14 11:30] LABS: Anti-Cardiolipin Ab, IgG, Qn 10 GPL U/mL (0-14); Anti-Cardiolipin Ab, IgM, Qn < 9 MPL U/mL (0-12); Anti-Thrombin 3 AG, Immunol 97 % (72-124); Antithrombin 3 Function 111 % (75-135); Beta-2-Glycoprotein I IgA <9 (0-25); Beta-2-Glycoprotein I IgG <9 (0-20); Beta-2-Glycoprotein I IgM <9 (0-32)
[2019-03-14 11:31] LABS: Activated Protein C Resistance 2.6 ratio (2.2-3.5); Anti-Cardiolipin Ab, IgG, Qn 9 GPL U/mL (0-14); Anti-Cardiolipin Ab, IgM, Qn < 9 MPL U/mL (0-12); Antithrombin 3 Function 109 % (75-135); Beta-2-Glycoprotein I IgG <9 (0-20); Beta-2-Glycoprotein I IgM <9 (0-32); Interpretation Comment: (.); Protein S, Free 124 % (57-157)
== END 2019-03-07 16:16 | disposition home or self-care (01) ==
LOC: ED 16:09 → PCU 17:46
PROVIDERS: Physician Assistant; Psychiatry & Neurology Neurology; Admitting Provider Hospitalist; Emergency Provider Emergency Medicine; Family Provider Family Medicine; PCP Family Medicine; Referring Provider Hospitalist; Visit Provider Internal Medicine
DX: G45.9 Transient cerebral ischemic attack, unspecified (principal); G35 Multiple sclerosis; R47.01 Aphasia; R20.0 Anesthesia of skin; E66.01 Morbid (severe) obesity due to excess calories; R29.700 NIHSS score 0; I10 Essential (primary) hypertension; I07.1 Rheumatic tricuspid insufficiency; Z68.42 Body mass index [BMI] 45.0-49.9, adult; Z71.3 Dietary counseling and surveillance; Z79.899 Other long term (current) drug therapy
CPT/HCPCS: 36415; 70450; 70496; 70498; 70551; 70552; 71045; 80048; 80061; 81240; 81241; 82607; 82962; 83036; 83090; 84443; 84484; 85025; 85300; 85301; 85302; 85303; 85307; 85420; 85610; 85613; 85705; 85730; 85732; 86146; 86147; 93005; 93306; 99218; 99285; A9575; Q9957; A4216; C8929; G0378